=== PATIENT | female | born 1980 | race Caucasian/White ===

== ENCOUNTER 2020-12-07 18:32 | Emergency (ER) | payer OTHER ==
[~2020-12-07 18:32] MED LIST: CEPHALEXIN500 MG PO
[2020-12-07] MEDS ORDERED: MEDROL 4MG DOSEP4 MG PO (21:38)
[2020-12-07] MEDS ORDERED: CYCLOBENZAPRINE10 MG PO (21:38)
[2020-12-07] MEDS ORDERED: IBUPROFEN800 MG PO (21:38)
[2020-12-07] MEDS ORDERED: NORCO 5-325 TA1 EACH PO (21:38)
== END 2020-12-07 21:55 | disposition home or self-care (01) ==
LOC: FER 18:32
DX: S16.1XXA Strain of muscle, fascia and tendon at neck level, initial encounter (principal); S29.012A Strain of muscle and tendon of back wall of thorax, initial encounter; S60.031A Contusion of right middle finger without damage to nail, initial encounter; S00.31XA Abrasion of nose, initial encounter; R07.9 Chest pain, unspecified; M25.511 Pain in right shoulder; V43.52XA Car driver injured in collision with other type car in traffic accident, initial encounter; Y92.410 Unspecified street and highway as the place of occurrence of the external cause
CPT/HCPCS: 71046; 72125; 72128; 73030; 73130; 93005